=== PATIENT | male | born 1980 | race Caucasian/White ===

== ENCOUNTER 2018-01-14 02:39 | Emergency (ER) | payer MEDICAID ==
[2018-01-14] MEDS ORDERED: LORAZEPAM 1 MG TAB (03:11)
[2018-01-14] MEDS ORDERED: LORAZEPAM 2 MG INJ (03:13)
[2018-01-14 04:05] LABS: ADD MAN DIFF? NO
[2018-01-14 04:06] LABS: ANION GAP 14 (8-16); BLOOD UREA NITROGEN 14 mg/dl (7-20); CALCIUM 9.2 mg/dl (8.4-10.2); CARBON DIOXIDE 25 mmol/L (21-31); CHLORIDE 108 mmol/L (97-110); CREATININE 0.92 mg/dl (0.61-1.24); GLUCOSE 112 mg/dl (70-220); POTASSIUM 3.8 mmol/L (3.5-5.1); SODIUM 143 mmol/L (135-144); TROPONIN-I < 0.010 ng/ml (0.000-0.120)
[2018-01-14 04:07] LABS: BASOPHIL # 0.1 10^3/ul (0.0-0.1); BASOPHILS % 0.7 % (0.0-2.0); EOSINOPHILS # 0.2 10^3/ul (0.0-0.5); EOSINOPHILS % 2.7 % (0.0-7.0); HEMATOCRIT 41.9 % (42.0-52.0); HEMOGLOBIN 14.5 g/dl (14.0-18.0); LYMPHOCYTES # 2.3 10^3/ul (0.8-2.9); LYMPHOCYTES % 33.9 % (15.0-51.0); MEAN CORPUSCULAR HEMOGLOBIN 29.4 pg (29.0-33.0); MEAN CORPUSCULAR HGB CONC 34.6 g/dl (32.0-37.0); MEAN CORPUSCULAR VOLUME 84.8 fl (82.0-101.0); MEAN PLATELET VOLUME 11.3 fl (7.4-10.4); MONOCYTE # 0.6 10^3/ul (0.3-0.9); MONOCYTES % 9.3 % (0.0-11.0); NEUTROPHIL # 3.7 10^3/ul (1.6-7.5); PLATELET COUNT 201 10^3/UL (140-415); RED BLOOD COUNT 4.94 10^6/ul (4.70-6.10); RED CELL DISTRIBUTION WIDTH 12.5 % (11.5-14.5)
[2018-01-14 04:07] LABS: WHITE BLOOD COUNT 6.9 10^3/ul (4.8-10.8)
[2018-01-14] MEDS ORDERED: SOD CHLORIDE 0.9% 500 ML IV (05:00)
[2018-01-14] MEDS ORDERED: LORAZEPAM 2 MG INJ IV (05:00)
== END 2018-01-14 04:26 | disposition home or self-care (01) ==
LOC: E/R 04:26
DX: F41.9 Anxiety disorder, unspecified (principal); R40.2252 Coma scale, best verbal response, oriented, at arrival to emergency department; R42 Dizziness and giddiness; R00.2 Palpitations; R10.9 Unspecified abdominal pain; R40.2142 Coma scale, eyes open, spontaneous, at arrival to emergency department; R40.2362 Coma scale, best motor response, obeys commands, at arrival to emergency department
CPT/HCPCS: 36415; 71045; 80048; 84484; 85025; 93005; 99284-25

== ENCOUNTER 2018-04-28 23:18 | Emergency (ER) | payer MEDICAID, OTHER | END 2018-04-29 02:01 | disposition home or self-care (01) | LOC: FTE 23:18 | DX: H66.91 Otitis media, unspecified, right ear (principal); J20.9 Acute bronchitis, unspecified | CPT/HCPCS: 99283; Z7502 ==

== ENCOUNTER 2018-05-10 16:19 | Emergency (ER) | payer MEDICAID ==
[2018-05-10 17:41] LABS: ADD MAN DIFF? NO; BASOPHILS % 0.4 % (0.0-2.0); EOSINOPHILS # 0.2 10^3/ul (0.0-0.5); EOSINOPHILS % 2.1 % (0.0-7.0); HEMATOCRIT 42.3 % (42.0-52.0); HEMOGLOBIN 14.8 g/dl (14.0-18.0); LYMPHOCYTES # 2.2 10^3/ul (0.8-2.9); LYMPHOCYTES % 28.3 % (15.0-51.0); MEAN CORPUSCULAR HEMOGLOBIN 29.2 pg (29.0-33.0); MEAN CORPUSCULAR VOLUME 83.4 fl (82.0-101.0); MEAN PLATELET VOLUME 10.7 fl (7.4-10.4); MONOCYTE # 0.8 10^3/ul (0.3-0.9); NEUTROPHIL # 4.5 10^3/ul (1.6-7.5); NEUTROPHILS % 58.8 % (39.0-77.0); PLATELET COUNT 231 10^3/UL (140-415); RED BLOOD COUNT 5.07 10^6/ul (4.70-6.10); RED CELL DISTRIBUTION WIDTH 12.6 % (11.5-14.5)
[2018-05-10 17:41] LABS: WHITE BLOOD COUNT 7.6 10^3/ul (4.8-10.8)
[2018-05-10 17:59] LABS: ANION GAP 15 (8-16); BLOOD UREA NITROGEN 15 mg/dl (7-20); CALCIUM 9.5 mg/dl (8.4-10.2); CARBON DIOXIDE 26 mmol/L (21-31); CHLORIDE 106 mmol/L (97-110); CREATININE 1.09 mg/dl (0.61-1.24); GLUCOSE 101 mg/dl (70-220); SODIUM 143 mmol/L (135-144)
[2018-05-10 18:28] LABS: TROPONIN-I < 0.012 ng/ml (0.000-0.120)
== END 2018-05-10 20:05 | disposition home or self-care (01) ==
LOC: FTE 16:19
DX: H66.91 Otitis media, unspecified, right ear (principal)
CPT/HCPCS: 36415; 71045; 80048; 84484; 85025; 93005; 99285-25